=== PATIENT | male | born 1970 | race Caucasian/White ===

== ENCOUNTER 2017-03-04 21:11 | Observation (INO) ==
--- NOTE | 2017-03-04 21:34 | Emergency Department Note ---
Disposition Clinical Impression: Lower extremity pain, History of DVT (deep vein thrombosis) Disposition: Admitted As Inpatient Condition: Good Extremity Problem HPI - General Chief complaint: ED Extremity Problem,Nontraumatic Stated complaint: LLE numb for 3 days but hurts now Source: patient Mode of arrival: ambulatory Limitations: no limitations Nursing Notes Reviewed: Yes Vital Signs Reviewed: Yes - History of Present Illness HPI Narrative: Patient presents with a three-day history of increasing left leg pain swelling and edema and tingling patient states that he got up today due to the bathroom and had some excruciating pain in the leg to patient is worried that he has a blood clot or even worse that he is not something else wrong with his leg he states that that normally his leg is warm to touch but he says it is cool male he denies though any bruising or ecchymosis or any known traumas had a history of bilateral lower extremity DVTs Pt Subjective Complaint: extremity swelling Onset (ago): day(s) (3) Consistency: constant Injury Location: left, lower extremity Pain Scale: 9 Quality: burning, aching Improves with: nothing Worsens with: range of motion Associated symptoms: Reports: myalgias, arthralgias, swelling. Denies: chest pain, shortness of breath, abdominal pain, back pain, bowel/bladder symptoms, fever, change in appearance, redness Context: history of DVT - Related Data Home Medications Medication Instructions Recorded Confirmed Albuterol Sulfate [Proair Hfa] 1 - 2 puff IH Q4-6H PRN 03/04/17 03/04/17 Beclomethasone Diprop 80mcg [Qvar 1 puff IH BID 03/04/17 03/04/17 80 mcg] Budesonide/Formoterol 160/4.5 2 puff IH BID 03/04/17 03/04/17 [Symbicort 160/4.5] Gabapentin [Neurontin] 600 mg PO TID 03/04/17 03/04/17 Lovastatin 40 mg PO DAILY 03/04/17 03/04/17 Metoprolol Succinate 25 mg PO DAILY 03/04/17 03/04/17 Omeprazole 20 mg PO DAILY 03/04/17 03/04/17 Topiramate [Topamax] 50 mg PO DAILY 03/04/17 03/04/17 Warfarin Sodium 7.5 mg PO DAILY 03/04/17 03/04/17 Allergies Allergy/AdvReac Type Severity Reaction Status Date / Time No Known Allergies Allergy Verified 03/05/17 01:50 All systems ED: reviewed and negative except as stated. Constitutional: Denies: fever, chills, weakness Eyes: Denies: eye pain, eye discharge ENT ED: Denies: throat pain, congestion Cardiovascular: Denies: chest pain, palpitations Respiratory: Denies: cough, dyspnea Gastrointestinal: Denies: abdominal pain, nausea, vomiting Genitourinary: Denies: urgency, dysuria, frequency Musculoskeletal: Reports: other (Left leg pain and swelling). Denies: back pain , neck pain Integumentary: Denies: rash, abrasion, lesions Neurological: Denies: headache, weakness Psychiatric: Denies: anxiety, depression Endocrine: Denies: fatigue Hematological/Lymphatic: Denies: easy bleeding Allergic/Immunologic: Denies: facial swelling Past Medical History - Past Medical History Attestation: Yes The following information was validated with the patient. Source: patient, old records reviewed, nursing notes reviewed Medical history: Reports: CVA, DVT - Social History Smoking Status: Former smoker Smokeless Tobacco Status: No Alcohol use: Reports: rarely Drug use: Reports: none Physical Exam - General Limitations: no limitations General appearance: alert, in no apparent distress, anxious - Head Head exam: atraumatic, normocephalic, normal inspection - Eye Eye exam: Present: normal appearance, PERRL, EOMI - ENT ENT exam: normal exam, normal oropharynx, mucous membranes moist, TM's normal bilaterally, normal external ear exam - Neck Neck exam: Present: normal inspection, full ROM, trachea midline - Chest Chest inspection: Present: normal inspection, symmetric chest wall rise - Respiratory Respiratory exam: Present: normal lung sounds bilaterally - Cardiovascular Cardiovascular exam: Present: regular rate, normal rhythm, normal heart sounds - Abdominal Exam Abdominal exam: Present: soft, Non-Tender, normal bowel sounds - Expanded Upper Extremity Exam Shoulder exam: Present: normal inspection, full ROM Arm exam: Present: normal inspection, full ROM Elbow exam: Present: normal inspection, full ROM Forearm/Wrist exam: Present: normal inspection, full ROM Hand exam: Present: normal inspection, full ROM Vascular exam: Normal: capillary refill, radial pulse - Expanded Lower Extremity Exam Hip/Pelvis exam: Present: normal inspection, full ROM Upper leg exam: Present: normal inspection, full ROM Knee exam: Present: normal inspection, full ROM Lower leg exam: Present: normal inspection, full ROM, tenderness (Tenderness and swelling noted of the left lower extremity from the knee distally), swelling. Absent: Homans' sign Ankle exam: Present: normal inspection, full ROM, tenderness, swelling Foot/toe exam: Present: normal inspection, full ROM, tenderness, swelling Neurovascular/Tendon exam: Present: normal capillary refill, normal fine/light touch. Absent: motor deficit, sensory deficit, tendon deficit Course Course Narrative: Patient seen and examined patient abnormal d-dimer but the patient is also on anticoagulant therapy but is having severe pain in the leg with some swelling in comparison to the right as result patient admitted overnight for observation and Doppler in a.. Dr. Harvey agrees Vital Signs Temperature 98.3 F 03/04/17 21:12 Pulse Rate 79 03/04/17 21:12 Respiratory Rate 16 03/04/17 21:12 Blood Pressure 138/97 03/04/17 21:12 O2 Sat by Pulse Oximetry 99 03/04/17 21:12 Temperature 97.7 F 03/05/17 06:43 Pulse Rate 69 03/05/17 06:43 Respiratory Rate 16 03/05/17 06:43 Blood Pressure 123/82 03/05/17 06:43 O2 Sat by Pulse Oximetry 98 03/05/17 06:43 Oxygen Delivery Oxygen Delivery Room Air Extremity Problem, Nontraumati - MDM Narrative Medical decision making narrative: Considerations are lumbar disc disease history of DVT or pulmonary emboli sciatica - Differential Diagnosis Likely: superficial thrombophlebitis, deep venous thrombosis - Medical Records Medical records reviewed: Yes I reviewed the patient's medical records. - Lab Data Lab results reviewed: Yes I reviewed the patient's lab results. Result diagrams: 03/04/17 21:48 03/04/17 21:48 Lab Results 03/04/17 03/04/17 03/04/17 Range/Units 21:48 21:48 21:48 WBC 6.6 (4.3-11.1) K/mcL RBC 4.28 (4.19-5.50) M/mcL Hgb 13.7 (12.9-16.9) g/dL Hct 38.2 (37.5-50.1) % MCV 89.3 (83.0-100.0) fL MCH 32.0 (28.0-33.3) pg MCHC 35.9 H (31.6-35.5) g/dL RDW 13.2 (11.5-14.5) % Plt Count 154 (140-400) K/mcL MPV 9.4 (9.4-12.4) fL Immature Gran % 0.2 (0-4) % Seg Neutrophils % 34.7 % Lymphocytes % 57.3 % Monocytes % 6.5 % Eosinophils % 1.1 % Basophils % 0.2 % Neutrophils # 2.3 (1.6-8.9) K/mcL Lymphocytes # 3.8 (0.6-4.6) K/mcL Monocytes # 0.4 (0.0-1.3) K/mcL Eosinophils # 0.1 (0.0-0.6) K/mcL Basophils # 0.0 (0.0-0.2) K/mcL PT 42.7 H (9.4-12.1) Seconds INR 3.8 APTT 46.9 H (26.0-36.0) Seconds D-Dimer < 215 (0-500) ng/mLFEU Sodium 144 (136-145) mEq/L Potassium 3.1 L (3.5-4.5) mEq/L Chloride 108 (98-109) mEq/L Carbon Dioxide 22 (19-29) mEq/L BUN 11 (8-26) mg/dL Creatinine 1.27 H (0.72-1.25) mg/dL Est GFR ( Amer) > 60 (> 60) Est GFR (Non-Af Amer) > 60 (> 60) BUN/Creatinine Ratio 9 (6-26) Glucose 98 (70-99) mg/dL Calculated Osmolality 297 (280-300) Calcium 9.2 (8.6-10.8) mg/dL - Radiology Data Radiology results reviewed: Yes I reviewed the patient's radiology results. 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 No lumbar disc disease. Sigmoid colon diverticulosis. D/ / Jose Francisco Garg MD / Jose Francisco Garg MD Interpreting Provider: Jose Francisco Garg MD - EKG Data EKG attestation: Yes I reviewed and interpreted this EKG. EKG results narrative: Normal sinus rhythm rate 62 NC 161 QRS 95 QT 422 axis XXV Critical Care Time Critical Care Time: No
[2017-03-04 22:00] LABS: Hematocrit 38.2 % (37.5-50.1); Hemoglobin 13.7 g/dL (12.9-16.9); Mean Corpuscular HGB Conc 35.9 g/dL (31.6-35.5); Mean Corpuscular Volume 89.3 fL (83.0-100.0); Mean Platelet Volume 9.4 fL (9.4-12.4); Platelet Count 154 K/mcL (140-400); Red Blood Count 4.28 M/mcL (4.19-5.50); Red Cell Distribution Width 13.2 % (11.5-14.5); Segmented Neutrophils % 34.7 %
[2017-03-04 22:01] LABS: Basophils % 0.2 %; Eosinophils # 0.1 K/mcL (0.0-0.6); Eosinophils % 1.1 %; Immature Granulocytes % 0.2 % (0-4); Lymphocytes # 3.8 K/mcL (0.6-4.6); Lymphocytes % 57.3 %; Monocytes # 0.4 K/mcL (0.0-1.3); Monocytes % 6.5 %; Neutrophils # 2.3 K/mcL (1.6-8.9)
[2017-03-04 22:09] LABS: INR 3.8; Prothrombin Time 42.7 Seconds (9.4-12.1)
[2017-03-04 22:12] LABS: Activated Partial Thrombo Time 46.9 Seconds (26.0-36.0); D-Dimer < 215 ng/mLFEU (0-500)
[2017-03-04 22:16] LABS: BUN/Creatinine Ratio 9 (6-26); Blood Urea Nitrogen 11 mg/dL (8-26); Calcium 9.2 mg/dL (8.6-10.8); Carbon Dioxide 22 mEq/L (19-29); Chloride 108 mEq/L (98-109); Glucose 98 mg/dL (70-99); Osmolality,Calculated 297 (280-300); Potassium 3.1 mEq/L (3.5-4.5); Sodium 144 mEq/L (136-145); eGFR For African Americans > 60 (> 60); eGFR For Non-African Americans > 60 (> 60)
[2017-03-05] MEDS ORDERED: *HR* HYDROcodone/Acet 7.5/325 mg TABLET PO ONE ×2 (00:52→01:22)
[2017-03-05] MEDS ORDERED: *HR* HYDROcodone/Acet 5/325 mg TABLET PO PRN (01:22)
[2017-03-05] MEDS ORDERED: Ondansetron ODT 4 MG TAB.RAPDIS SL PRN (01:22)
[2017-03-05] MEDS ORDERED: Ibuprofen 400 MG TABLET PO PRN (01:22)
[2017-03-05] MEDS ORDERED: Acetaminophen 325 MG TABLET PO PRN (01:22)
[2017-03-05] MEDS ORDERED: Naloxone 0.4 MG/ML INJ IVP PRN (01:22)
[2017-03-05] MEDS: 0.9 % Sodium Chloride 1,000 ML IVC SCH ×2 (02:12→12:21)
[2017-03-05 06:53] LABS: Basophils % 0.2 %; Eosinophils # 0.1 K/mcL (0.0-0.6); Eosinophils % 1.8 %; Hematocrit 36.9 % (37.5-50.1); Hemoglobin 12.9 g/dL (12.9-16.9); Immature Granulocytes % 0.2 % (0-4); Lymphocytes # 3.1 K/mcL (0.6-4.6); Lymphocytes % 62.3 %; Mean Corpuscular Hemoglobin 31.5 pg (28.0-33.3); Mean Platelet Volume 9.6 fL (9.4-12.4); Monocytes # 0.3 K/mcL (0.0-1.3); Monocytes % 6.8 %; Neutrophils # 1.4 K/mcL (1.6-8.9); Platelet Count 155 K/mcL (140-400); Red Cell Distribution Width 13.2 % (11.5-14.5); Segmented Neutrophils % 28.7 %
[2017-03-05 06:59] LABS: INR 3.6; Prothrombin Time 40.2 Seconds (9.4-12.1)
[2017-03-05 07:02] LABS: Activated Partial Thrombo Time 47.2 Seconds (26.0-36.0)
[2017-03-05 07:59] LABS: BUN/Creatinine Ratio 9 (6-26); Blood Urea Nitrogen 10 mg/dL (8-26); Calcium 8.6 mg/dL (8.6-10.8); Carbon Dioxide 24 mEq/L (19-29); Chloride 109 mEq/L (98-109); Glucose 96 mg/dL (70-99); Osmolality,Calculated 293 (280-300); Potassium 3.3 mEq/L (3.5-4.5); Sodium 142 mEq/L (136-145); eGFR For African Americans > 60 (> 60); eGFR For Non-African Americans > 60 (> 60)
[2017-03-05] MEDS ORDERED: Budesonide/Formoterol 160/4.5 MDI IH SCH (09:00)
[2017-03-05] MEDS ORDERED: Gabapentin 300 MG CAPSULE PO SCH (09:00)
[2017-03-05] MEDS ORDERED: Topiramate 25 MG TABLET PO SCH (09:00)
[2017-03-05] MEDS ORDERED: Metoprolol XL (24 HR) Succ 25 MG TAB.ER.24H PO SCH (09:00)
[2017-03-05] MEDS ORDERED: Beclomethasone 80mcg MDI IH SCH (10:00)
[2017-03-05 11:39] VITALS: BP 123/70
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
--- NOTE | 2017-03-05 12:17 | Discharge Summary ---
Date of Encounter: 03/05/17 Time of Encounter: 11:25 - Discharge Diagnosis (1) Lower extremity pain Priority: Primary Status: Chronic Qualifiers: Laterality: left Qualified Code(s): M79.605 - Pain in left leg - Discharge Medications Prescriptions: Potassium Chloride 10 meq PO BIDWM #14 [email or web address] Home Medications: Albuterol Sulfate [Proair Hfa] 1 - 2 puff IH Q4-6H PRN 03/04/17 [History] Beclomethasone Diprop 80mcg [QVAR 80 mcg] 1 puff IH BID 03/04/17 [History] Budesonide/Formoterol 160/4.5 [Symbicort 160/4.5] 2 puff IH BID 03/04/17 [ History] Gabapentin [Neurontin] 600 mg PO TID 03/04/17 [History] Lovastatin 40 mg PO DAILY 03/04/17 [History] Metoprolol Succinate 25 mg PO DAILY 03/04/17 [History] Omeprazole 20 mg PO DAILY 03/04/17 [History] Topiramate [Topamax] 50 mg PO DAILY 03/04/17 [History] Warfarin Sodium 7.5 mg PO DAILY 03/04/17 [History] Potassium Chloride 10 meq PO BIDWM #14 tab.[email or web address].prt 03/05/17 [Rx] Allergies/Adverse Reactions: Allergies No Known Allergies Allergy (Verified 03/05/17 01:50) Procedures/tests Complete & Pending: Procedures Performed prior 72 hours Category Date Time Status ECG 12 lead ECG [ECG] Stat Y 03/05/17 06:58 Completed Date of admission: 03/05/17 01:11 Primary care physician: Omega Cbaral CNP - Patient Status Disposition: Home, Self-Care Condition: Good Overall status at discharge: patient is progressing back to baseline - Discharge Instructions Follow Up With: Omega Cabral CNP [Advanced Practice Nurse] - 1 week - Diet and Activity Activity: resume usual activities as tolerated Diet: advance to your usual diet Hospital course: Mr. Bowser is a 46 year old male who came to the emergency room stating he had worsening left leg pain onset a few hours earlier at home. He states he had risen from the toilet and started to walk when he developed abrupt discomfort in his left thigh that seemed to radiate to his left lower leg. He took 2 Tylenol without relief. A few hours later since his gave him 3 additional Tylenol. He was still in pain so came to emergency room. He was evaluated with d-dimer returning normal. CT of the LS spine showed no acute pathology. He was admitted to [facility] for venous leg ultrasound since he has history of DVT/pulmonary emboli. Initial orders were written by the emergency room physician. I saw him on March 05 and performed a history, physical, and discharge. Venous ultrasound was ordered by the ER physician because of history of DVT. A verbal preliminary report by the septic technician revealed no evidence of left leg DVT. When I saw him he felt improved and felt stable for discharge home. He will follow with his PCP Omega Cabral CNP within 1 week. He will be given potassium chloride 10 mEq twice a day for 7 days. The etiology of his hypokalemia is not obvious. - Time Spent with Patient Total time spent providing and/or coordinating discharge services: - Constitutional Vitals: Temp Pulse Resp BP Pulse Ox 97.5 F L 68 16 123/70 94 03/05/17 11:31 03/05/17 11:31 03/05/17 11:31 03/05/17 11:31 03/05/17 11:31
--- NOTE | 2017-03-05 13:37 | Electrocardiograph Report ---
[address] [address] Test Date: 2017-03-05 Pat Name: Dillon Bowser Department: [id number] Room: [facility] Gender: M Broom Man: [id number] : 1970 Requested By: Isadora Collado Order Number: [id number] Reading MD: Jose M Watts MD Measurements Intervals Silas Rate: 62 P: 228 DE: 161 QRS: 25 QRSD: 95 T: 18 QT: 422 QTc: 428 Interpretive Statements SINUS RHYTHM Electronically Signed On 03-05-2017 13:36:26 EDT by Jose M Watts MD
--- NOTE | 2017-03-05 15:53 | Venous Imaging Report ---
LE Venous Duplex Patient Name:Dillon Bowser Order Number:[id number] Procedure Date:03/05/2017 Date:1970Age:46 yrs Gender:Male Location:[facility] Room #: Managing Attorney:Tomer Herr RDCS Referring MD:Isadora Collado DO Reading MD:Giovanny Moncada MD , FACS Primary Indications:Swelling of limb Secondary Indications: Risk Factors Yes/No Hx of DVT Impressions: Left lower extremity: normal superficial and deep exam. Right lower extremity: normal contralateral exam. Recommendations: Test completed on 03/05/2017 at 12:36:20 pm. Critical findings reported to Dr. Harvey in person at 12:36:42 pm on 03/05/2017 by Tomer Herr RDCS. Findings Venous Duplex Results: Right: Venous imaging of the lower extremity reveals full patency and normal vessel compressibility of the right common femoral. Doppler signals in the evaluated veins were normal. Left: Venous imaging of the lower extremity reveals full patency and normal vessel compressibility of the left distal iliac, left common femoral, left superficial femoral, left popliteal, left posterior tibial, left peroneal, left saphenofemoral junction, left great saphenous and left lesser saphenous. Doppler signals in the evaluated veins were normal. Prior Study: No prior study available for comparison. Lower Extremity Venous Duplex Side Vein Compress Spontaneous Flow Augment Diameter (cm) Depth (cm) Left Distal Iliac Normal Yes Phasic Yes Left Common Femoral Normal Yes Phasic Yes Left Superficial Femoral Normal Yes Phasic Yes Left Popliteal Normal Yes Phasic Yes Left Posterior Tibial Normal Yes Phasic Yes Left Peroneal Normal Yes Phasic Yes Left Saphenofemoral Junction Normal Yes Phasic Yes Left Great Saphenous Normal Yes Phasic Yes Left Lesser Saphenous Normal Yes Phasic Yes Right Common Femoral Normal Yes Phasic Yes Updated by Giovanny Moncada MD, FACS on 03/05/2017 3:46:07 PM Giovanny Moncada MD electronically signed on 03/05/2017 3:46:46 PM with status of Final
[2017-03-05] MEDS ORDERED: *HR* Warfarin 5 MG TABLET PO SCH (18:00)
== END 2017-03-05 13:47 | disposition home or self-care (01) ==
LOC: INPPIK 21:11 → EMEROOPIK 21:11 → INPPIK 03-05 01:23
PROVIDERS: ADMIT Internal Medicine; ATTEND Internal Medicine